=== PATIENT | female | born 1975 | race Caucasian/White ===

== ENCOUNTER 2016-07-14 21:13 | Emergency (ER) | payer OTHER ==
[~2016-07-14] VITALS: Ht 160 cm; Wt 57.6 kg
[2016-07-14 21:18] VITALS: BP 150/96
--- NOTE | 2016-07-14 23:02 | NUR ---
PATIENT LEFT WITHOUT BEING SEEN BY DR. RAWLS. NO FURTHER CARE PROVIDED FOR PATIENT.
== END 2016-07-14 23:02 | disposition left against medical advice (07) ==
LOC: MED 21:13
DX: F41.0 Panic disorder [episodic paroxysmal anxiety] (principal); R42 Dizziness and giddiness; Z53.21 Procedure and treatment not carried out due to patient leaving prior to being seen by health care provider

== ENCOUNTER 2016-10-14 21:38 | Emergency (ER) | payer OTHER ==
[~2016-10-14] VITALS: Ht 157.5 cm; Wt 54.1 kg
[2016-10-14 21:43] VITALS: BP 125/93
--- NOTE | 2016-10-15 00:52 | NUR ---
PATIENT LEFT WITHOUT BEING SEEN BY DR. WEINER. NO FURTHER CARE PROVIDED FOR PATIENT.
== END 2016-10-15 00:52 | disposition left against medical advice (07) ==
LOC: MED 21:38
DX: F41.9 Anxiety disorder, unspecified (principal); R05 Cough; Z53.21 Procedure and treatment not carried out due to patient leaving prior to being seen by health care provider

== ENCOUNTER 2016-10-30 22:58 | Emergency (ER) | payer OTHER ==
[~2016-10-30] VITALS: Ht 157.5 cm; Wt 52.2 kg
--- NOTE | 2016-10-30 23:26 | NUR ---
CALLED PT FOR TRIAGE ASSESSMENT, NO ANSWER.
[2016-10-30 23:35] VITALS: BP 141/91
--- NOTE | 2016-10-31 00:59 | NUR ---
Patient to OF.
--- NOTE | 2016-10-31 01:16 | NUR ---
PT BIB FAMILY C/O COUGH X2 DAYS. HX ANXIETY. PT STATES SHE IS A SMOKER. PT DENIES ANY TRAUMA. PT DENIES N/V/D; SKIN IS INTACT, PINK/WARM/DRY; AAOX4, PERRL, WITH EVEN AND STEADY GAIT; LUNGS CLEAR BL, BREATHING UNLABORED; HR EVEN AND REGULAR, BL PERIPHERAL PULSES PRESENT; BS ACTIVE X4, NO TENDERNESS TO PALPATION. PT DENIES ANY FEVER, CP, SOB, OR COUGH AT THIS TIME; PT STATES 0/10 PAIN AT THIS TIME; VSS; PATIENT POSITIONED FOR COMFORT; HOB ELEVATED; BEDRAILS UP X2; BED DOWN.
--- NOTE | 2016-10-31 01:31 | NUR ---
Dr. Tenorio evaluating patient.
[2016-10-31 01:47] VITALS: BP 123/77
--- NOTE | 2016-10-31 01:48 | NUR ---
Patient discharged with v/s stable. Written and verbal after care instructions given and explained. Patient alert, oriented and verbalized understanding of instructions. Ambulatory with steady gait. All questions addressed prior to discharge. ID band removed. Patient advised to follow up with PMD. Rx of ALBUREROL 90 MCG/ACTUATION INHALATION, PREDNISOLONE 20 MG given. Patient educated on indication of medication including possible reaction and side effects. Opportunity to ask questions provided and answered.
== END 2016-10-31 01:48 | disposition home or self-care (01) ==
LOC: MED 22:58
DX: J06.9 Acute upper respiratory infection, unspecified (principal); J20.9 Acute bronchitis, unspecified; R03.0 Elevated blood-pressure reading, without diagnosis of hypertension; F41.9 Anxiety disorder, unspecified; F17.210 Nicotine dependence, cigarettes, uncomplicated; Z88.5 Allergy status to narcotic agent; Z71.6 Tobacco abuse counseling
CPT/HCPCS: 71010; 99283

== ENCOUNTER 2016-12-03 17:48 | Emergency (ER) | payer OTHER ==
[~2016-12-03] VITALS: Ht 157.5 cm; Wt 48.1 kg
[2016-12-03 17:53] VITALS: BP 118/85
--- NOTE | 2016-12-03 20:15 | NUR ---
TO ER OF3
--- NOTE | 2016-12-03 20:30 | NUR ---
Patient being evaluated by physician.
[2016-12-03 20:50] VITALS: BP 125/72
--- NOTE | 2016-12-03 20:50 | NUR ---
Patient discharged with v/s stable. Written and verbal after care instructions given and explained. Patient verbalized understanding. Ambulatory with steady gait. All questions addressed prior to discharge. Advised to follow up with PMD.
== END 2016-12-03 20:50 | disposition home or self-care (01) ==
LOC: MED 17:48
DX: R05 Cough (principal); F41.9 Anxiety disorder, unspecified; Z88.5 Allergy status to narcotic agent; K21.9 Gastro-esophageal reflux disease without esophagitis; F17.210 Nicotine dependence, cigarettes, uncomplicated; Z71.6 Tobacco abuse counseling
CPT/HCPCS: 71010; 81025; 99283